=== PATIENT | male | born 1960 | race Caucasian/White ===

== ENCOUNTER 2023-04-11 15:11 | Emergency (ER) | payer MEDICARE ==
[2023-04-11 15:33] LABS: BASOPHILS PERCENT AUTO 0.3 % (0.0-1.0); EOSINOPHILS PERCENT AUTO 2.1 % (1.0-3.0); HEMATOCRIT 42.8 % (40.0-54.0); LYMPHOCYTES PERCENT AUTO 16.8 % (20.5-50.1); MEAN CORPUSCULAR HEMOGLOBIN 30.2 pg (27.0-34.0); MEAN CORPUSCULAR HGB CONC 32.7 g/dL (33.0-35.0); MEAN CORPUSCULAR VOLUME 92.2 fL (80-100); MONOCYTES PERCENT AUTO 7.5 % (2-8); NEUTROPHILS PERCENT AUTO 73.3 % (42.2-75.2); PLATELET COUNT,PLT 209 10^3/uL (150-450); RED BLOOD CELL COUNT 4.64 10^6/uL (4.6-6.2); WHITE BLOOD CELL COUNT,WBC 9.3 10^3/uL (5.0-10.0)
[2023-04-11 15:50] LABS: PROTHROMBIN TIME 9.8 SEC (9.0-12.0)
[2023-04-11] MEDS: Sodium Chloride 0.9% 10 ML Syringe FLUSH PRN (15:50)
[2023-04-11 15:56] LABS: LACTIC ACID 1.8 mmol/L (0.4-2.0)
[2023-04-11 15:58] LABS: A/G RATIO 1.4; ALBUMIN 3.8 g/dL (3.4-5.0); ANION GAP 10.2 mEq/L (7-13); BILIRUBIN TOTAL 0.3 mg/dL (0.2-1.0); BUN/CREATININE RATIO 15.9 (No establ ref range); C-REACTIVE PROTEIN 0.5 mg/dL (0.0-0.9); CALCIUM 9.4 mg/dL (8.5-10.1); CREATININE 1.07 mg/dL (0.70-1.30); EST CRCL DRUG DOSING (CG) 62.11 mL/min; MAGNESIUM 1.8 mg/dL (1.8-2.4); POTASSIUM,K 4.2 mmol/L (3.5-5.1); PROTEIN TOTAL,TP 6.6 g/dL (6.4-8.2)
== END 2023-04-11 16:47 | disposition home or self-care (01) ==
LOC: DL.ED 15:11
DX: R07.89 Other chest pain (principal); Z86.16 Personal history of COVID-19
CPT/HCPCS: 36415; 71045; 80053; 82150; 83605; 83690; 83735; 84484; 85025; 85610; 86140; 93005; 93010; 99284; 99285; J3490